=== PATIENT | male | born 1960 | race African-American/Black ===

== ENCOUNTER 2021-10-25 18:20 | Inpatient (IN) | payer OTHER, MEDICAID ==
[~2021-10-25] VITALS: Ht 170.2 cm; Wt 57.2 kg
[~2021-10-25 18:20] MED LIST: BACL5TAB PO; ELVI1TAB3 MT; MSCON15 MT; TAMS-11 MT
[2021-10-25 19:36] LABS: BASOPHILS % 0.9 % (0.0-2.0); EOSINOPHILS % 3.1 % (0.0-5.0); HEMATOCRIT. 37.2 % (42.0-52.0); HEMOGLOBIN. 12.5 g/dL (14.0-18.0); LYMPHOCYTES % 59.3 % (20.0-50.0); MEAN CORPUSCULAR HEMOGLOBIN 28.1 pg (28.0-32.0); MEAN CORPUSCULAR VOLUME 83.8 fL (80.0-94.0); MEAN PLATELET VOLUME 7.8 fl (7.4-10.4); NEUTROPHILS % 26.7 % (40.0-76.0); PLATELET 251 x1000/uL (130-400); RED BLOOD CELL COUNT 4.44 mill/uL (4.7-6.1); RED CELL DISTRIBUTION WIDTH 13.5 % (11.6-14.6)
[2021-10-25 19:42] LABS: CHLORIDE 105 mEq/L (98-107)
[2021-10-25 19:45] LABS: ETHANOL BLOOD < 10 mg/dL
[2021-10-25 19:51] LABS: CREATINE KINASE 181 IU/L (39-308)
[2021-10-25 19:53] LABS: CREATINE KINASE MB FRACTION 2.5 ng/mL (0.5-3.6)
[2021-10-25] MEDS ORDERED: SODIUM CHLORIDE 0.9% 1,000 ML IV ONE (20:45)
[2021-10-25 21:00] LABS: PROTHROMBIN TIME 10.7 sec (9.6-11.0)
[2021-10-25] MEDS ORDERED: ACETAMINOPHEN 325MG TABLET PO PRN (21:45)
[2021-10-25] MEDS ORDERED: CLONIDINE 0.1MG TABLET PO PRN (21:45)
[2021-10-25] MEDS ORDERED: DOCUSATE SODIUM 100MG CAPSULE PO PRN (21:45)
[2021-10-25] MEDS ORDERED: ONDANSETRON HCL 4MG/2ML INJ IV PRN (21:45)
[2021-10-25] MEDS ORDERED: IPRATROPIUM/ALBUTEROL 0.5-3(2.5)MG/3ML NEB HHN PRN (21:45)
[2021-10-25] MEDS ORDERED: GUAIFENESIN 200MG/10ML SUGAR FREE UDC PO PRN (21:45)
[2021-10-25] MEDS ORDERED: NALOXONE HCL 0.4MG/ML VIAL IV PRN (22:00)
[2021-10-25 23:42] LABS: CLARITY URINE CLEAR (CLEAR); COLOR URINE YELLOW (YELLOW); KETONES URINE NEGATIVE (NEGATIVE); LEUKOCYTE ESTERASE URINE 3+ (NEGATIVE); NITRITE URINE POSITIVE (NEGATIVE); OCCULT BLOOD URINE 2+ (NEGATIVE); PH URINE 6.5 (4.5-8.0); PROTEIN URINE NEGATIVE (NEGATIVE); SPECIFIC GRAVITY URINE 1.014 (1.005-1.030)
[2021-10-26 00:46] LABS: *AMPHETAMINES SCREEN URINE NEGATIVE (NEGATIVE); *BENZODIAZEPINES SCREEN URINE NEGATIVE (NEGATIVE); *COCAINE SCREEN URINE NEGATIVE (NEGATIVE); CANNABINOID URINE SCREEN NEGATIVE (NEGATIVE); METHADONE URINE SCREEN NEGATIVE (NEGATIVE); OPIATES URINE SCREEN NEGATIVE (NEGATIVE); PHENCYCLIDINE URINE SCREEN NEGATIVE (NEGATIVE)
[2021-10-26 02:20] LABS: *BARBITURATES SCREEN URINE NEGATIVE (NEGATIVE)
[2021-10-26] MEDS ORDERED: CEFTRIAXONE 1 G PREMIX 50 ML IV SCH (09:00)
[2021-10-26] MEDS: ENOXAPARIN 30MG/0.3ML SYR SUBCUT SCH (09:39)
[2021-10-26] MEDS ORDERED: HYDROCODONE/ACETAMINOPHEN 5/325MG TABLET PO PRN (11:45)
[2021-10-26] MEDS ORDERED: BISACODYL 5MG TABLET PO PRN (11:45)
[2021-10-26] MEDS: POLYETHYLENE GLYCOL 3350 (17GM) 1 DOSE PACK PO SCH (12:00)
[2021-10-26] MEDS: GABAPENTIN 300MG CAPSULE PO SCH (12:17)
[2021-10-26 16:03] LABS: BASOPHILS % 1.1 % (0.0-2.0); EOSINOPHILS % 3.3 % (0.0-5.0); HEMATOCRIT. 37.6 % (42.0-52.0); HEMOGLOBIN. 12.3 g/dL (14.0-18.0); LYMPHOCYTES % 54.5 % (20.0-50.0); MEAN CORPUSCULAR HEMOGLOBIN 27.3 pg (28.0-32.0); MEAN CORPUSCULAR VOLUME 83.6 fL (80.0-94.0); MEAN PLATELET VOLUME 7.9 fl (7.4-10.4); MONOCYTES % 7.1 % (2.0-8.0); PLATELET 258 x1000/uL (130-400); RED BLOOD CELL COUNT 4.49 mill/uL (4.7-6.1); RED CELL DISTRIBUTION WIDTH 13.9 % (11.6-14.6)
[2021-10-26 16:08] LABS: CHLORIDE 108 mEq/L (98-107)
[2021-10-26 17:30] VITALS: BP 106/72
[2021-10-26] MEDS ORDERED: PNEUMOCOCCAL 23-VAL P-SAC VAC 0.5 ML IM ONE (18:30)
[2021-10-26 20:00] VITALS: BP 120/78
[2021-10-26] MEDS ORDERED: LACTULOSE 20G/30ML UDC PO PRN (21:00)
[2021-10-27] VITALS: BP 118/74
[2021-10-27 04:00] VITALS: BP 113/74
[2021-10-27 05:56] LABS: BASOPHILS % 0.7 % (0.0-2.0); EOSINOPHILS % 4.8 % (0.0-5.0); HEMOGLOBIN. 12.5 g/dL (14.0-18.0); LYMPHOCYTES % 57.7 % (20.0-50.0); MEAN CORPUSCULAR HEMOGLOBIN 27.6 pg (28.0-32.0); MEAN CORPUSCULAR VOLUME 83.7 fL (80.0-94.0); MONOCYTES % 7.5 % (2.0-8.0); NEUTROPHILS % 29.3 % (40.0-76.0); PLATELET 261 x1000/uL (130-400); RED BLOOD CELL COUNT 4.54 mill/uL (4.7-6.1); RED CELL DISTRIBUTION WIDTH 13.8 % (11.6-14.6)
[2021-10-27 06:40] LABS: CHLORIDE 109 mEq/L (98-107)
[2021-10-27 08:00] VITALS: BP 106/62
[2021-10-27] MEDS: POLYETHYLENE GLYCOL 3350 (17GM) 1 DOSE PACK PO SCH (09:00)
[2021-10-27] MEDS: ENOXAPARIN 30MG/0.3ML SYR SUBCUT SCH (09:17)
[2021-10-27] MEDS: GENVOYA PO SCH (09:17)
[2021-10-27] MEDS: GABAPENTIN 300MG CAPSULE PO SCH (09:18)
[2021-10-27] MEDS ORDERED: CEFTRIAXONE 1,000 MG in DEXTROSE 5% WATER 50 ML IV SCH (11:00)
[2021-10-27 12:00] VITALS: BP 100/61
[2021-10-27] MEDS: DOCUSATE SODIUM 250MG CAPSULE PO SCH (13:10)
[2021-10-27 16:00] VITALS: BP 99/68
[2021-10-27 20:00] VITALS: BP 112/70
[2021-10-27] MEDS: PIPERACILLIN/TAZOBACTAM 3.375 G in DEXTROSE 5% WATER 50 ML IV SCH (23:44)
[2021-10-28] VITALS: BP 99/51
[2021-10-28 04:00] VITALS: BP 90/62
[2021-10-28] MEDS: PIPERACILLIN/TAZOBACTAM 3.375 G in DEXTROSE 5% WATER 50 ML IV SCH ×2 (05:34→15:42)
[2021-10-28 08:00] VITALS: BP 107/69
[2021-10-28] MEDS: POLYETHYLENE GLYCOL 3350 (17GM) 1 DOSE PACK PO SCH (09:00)
[2021-10-28] MEDS: ENOXAPARIN 30MG/0.3ML SYR SUBCUT SCH (09:09)
[2021-10-28] MEDS: DOCUSATE SODIUM 250MG CAPSULE PO SCH (09:10)
[2021-10-28] MEDS: GABAPENTIN 300MG CAPSULE PO SCH (09:10)
[2021-10-28] MEDS: GENVOYA PO SCH (09:11)
[2021-10-28 12:00] VITALS: BP 101/73
[2021-10-28] MEDS: LACTULOSE 20G/30ML UDC PO NR ×2 (14:00→15:42)
[2021-10-28 16:00] VITALS: BP 112/77
[2021-10-28] MEDS ORDERED: LEVO750T46 MT ×2 (17:50)
[2021-10-28] MEDS ORDERED: DOCU250C14 MT (17:56)
[2021-10-28 20:00] VITALS: BP 118/82
[2021-10-28] MEDS: LEVOFLOXACIN 500MG TABLET PO SCH (20:30)
[2021-10-29] VITALS: BP 105/54
[2021-10-29 04:00] VITALS: BP 95/55
[2021-10-29 08:00] VITALS: BP 110/65
[2021-10-29] MEDS: POLYETHYLENE GLYCOL 3350 (17GM) 1 DOSE PACK PO SCH (09:00)
[2021-10-29] MEDS: DOCUSATE SODIUM 250MG CAPSULE PO SCH (09:08)
[2021-10-29] MEDS: GENVOYA PO SCH (09:08)
[2021-10-29] MEDS: GABAPENTIN 300MG CAPSULE PO SCH (09:08)
[2021-10-29] MEDS: ENOXAPARIN 40MG/0.4ML SYR SUBCUT SCH (09:09)
[2021-10-29 12:00] VITALS: BP 101/67
[2021-10-29] MEDS ORDERED: BISACODYL 5MG TABLET PO SCH (14:00)
[2021-10-29 16:00] VITALS: BP 123/81
[2021-10-29] MEDS: LEVOFLOXACIN 500MG TABLET PO SCH (17:43)
[2021-10-29 20:00] VITALS: BP 112/75
[2021-10-29] MEDS: TRAMADOL 50MG TABLET PO PRN (20:49)
[2021-10-30] VITALS: BP 116/59
[2021-10-30 04:00] VITALS: BP 126/66
[2021-10-30 08:00] VITALS: BP 105/60
[2021-10-30] MEDS: POLYETHYLENE GLYCOL 3350 (17GM) 1 DOSE PACK PO SCH (09:00)
[2021-10-30] MEDS: GABAPENTIN 300MG CAPSULE PO SCH (09:41)
[2021-10-30] MEDS: TRAMADOL 50MG TABLET PO PRN (09:41)
[2021-10-30] MEDS: GENVOYA PO SCH (09:41)
[2021-10-30] MEDS: DOCUSATE SODIUM 250MG CAPSULE PO SCH (09:47)
[2021-10-30] MEDS: ENOXAPARIN 40MG/0.4ML SYR SUBCUT SCH (09:49)
[2021-10-30 12:00] VITALS: BP 101/65
[2021-10-30 16:00] VITALS: BP 104/67
[2021-10-30] MEDS: LEVOFLOXACIN 500MG TABLET PO SCH (18:49)
[2021-10-30 20:00] VITALS: BP 109/66
[2021-10-31] VITALS: BP 92/48
[2021-10-31 04:00] VITALS: BP 103/58
[2021-10-31 08:00] VITALS: BP 96/58
[2021-10-31] MEDS: GENVOYA PO SCH (09:00)
[2021-10-31] MEDS: DOCUSATE SODIUM 250MG CAPSULE PO SCH (09:25)
[2021-10-31] MEDS: GABAPENTIN 300MG CAPSULE PO SCH (09:25)
[2021-10-31] MEDS: ENOXAPARIN 40MG/0.4ML SYR SUBCUT SCH (09:25)
[2021-10-31] MEDS: POLYETHYLENE GLYCOL 3350 (17GM) 1 DOSE PACK PO SCH (09:25)
[2021-10-31 12:00] VITALS: BP 117/72
[2021-10-31 16:00] VITALS: BP 110/70
[2021-10-31] MEDS: LEVOFLOXACIN 500MG TABLET PO SCH (17:35)
[2021-10-31 20:00] VITALS: BP 104/72
[2021-11-01] VITALS: BP 100/56
[2021-11-01 04:00] VITALS: BP 106/56
[2021-11-01 08:00] VITALS: BP 91/56
[2021-11-01] MEDS: POLYETHYLENE GLYCOL 3350 (17GM) 1 DOSE PACK PO SCH (08:50)
[2021-11-01] MEDS: GABAPENTIN 300MG CAPSULE PO SCH (08:50)
[2021-11-01] MEDS: DOCUSATE SODIUM 250MG CAPSULE PO SCH (08:51)
[2021-11-01] MEDS: ENOXAPARIN 40MG/0.4ML SYR SUBCUT SCH (08:51)
[2021-11-01] MEDS: GENVOYA PO SCH ×2 (08:53→16:55)
[2021-11-01 12:00] VITALS: BP 98/71
[2021-11-01 16:00] VITALS: BP 104/73
[2021-11-01] MEDS: LEVOFLOXACIN 500MG TABLET PO SCH (16:56)
[2021-11-01 20:00] VITALS: BP 106/80
[2021-11-02] VITALS: BP 103/70
[2021-11-02 04:00] VITALS: BP 117/75
[2021-11-02 06:37] LABS: BASOPHILS % 0.4 % (0.0-2.0); EOSINOPHILS % 3.9 % (0.0-5.0); HEMOGLOBIN. 12.9 g/dL (14.0-18.0); LYMPHOCYTES % 51.3 % (20.0-50.0); MEAN CORPUSCULAR VOLUME 82.7 fL (80.0-94.0); MEAN PLATELET VOLUME 8.2 fl (7.4-10.4); MONOCYTES % 7.8 % (2.0-8.0); NEUTROPHILS % 36.6 % (40.0-76.0); PLATELET 325 x1000/uL (130-400); RED BLOOD CELL COUNT 4.59 mill/uL (4.7-6.1); RED CELL DISTRIBUTION WIDTH 13.9 % (11.6-14.6)
[2021-11-02 06:40] LABS: CHLORIDE 105 mEq/L (98-107)
[2021-11-02 08:00] VITALS: BP 109/70
[2021-11-02] MEDS: POLYETHYLENE GLYCOL 3350 (17GM) 1 DOSE PACK PO SCH (09:09)
[2021-11-02] MEDS: ENOXAPARIN 40MG/0.4ML SYR SUBCUT SCH (09:09)
[2021-11-02] MEDS: GENVOYA PO SCH (09:09)
[2021-11-02] MEDS: GABAPENTIN 300MG CAPSULE PO SCH (09:09)
[2021-11-02] MEDS: DOCUSATE SODIUM 250MG CAPSULE PO SCH (09:09)
[2021-11-02 12:00] VITALS: BP 105/70
[2021-11-02 16:00] VITALS: BP 110/73
[2021-11-02] MEDS: LEVOFLOXACIN 500MG TABLET PO SCH (17:36)
[2021-11-02 20:00] VITALS: BP 99/52
[2021-11-03] VITALS: BP 106/55
[2021-11-03 04:00] VITALS: BP 99/56
[2021-11-03 08:00] VITALS: BP 94/59
[2021-11-03] MEDS: DOCUSATE SODIUM 250MG CAPSULE PO SCH (08:55)
[2021-11-03] MEDS: ENOXAPARIN 40MG/0.4ML SYR SUBCUT SCH (08:55)
[2021-11-03] MEDS: GABAPENTIN 300MG CAPSULE PO SCH (08:55)
[2021-11-03] MEDS: GENVOYA PO SCH (08:56)
[2021-11-03 12:00] VITALS: BP 108/70
[2021-11-03 16:00] VITALS: BP 112/72
[2021-11-03 20:00] VITALS: BP 98/71
[2021-11-04] VITALS: BP 101/73
[2021-11-04 04:00] VITALS: BP 96/52
[2021-11-04 08:00] VITALS: BP 95/54
[2021-11-04] MEDS: GABAPENTIN 300MG CAPSULE PO SCH (09:01)
[2021-11-04] MEDS: DOCUSATE SODIUM 250MG CAPSULE PO SCH (09:01)
[2021-11-04] MEDS: GENVOYA PO SCH (09:01)
[2021-11-04] MEDS: ENOXAPARIN 40MG/0.4ML SYR SUBCUT SCH (09:02)
[2021-11-04 11:35] VITALS: BP 100/61
[2021-11-04 16:00] VITALS: BP 102/74
[2021-11-04 20:00] VITALS: BP 115/77
[2021-11-05] VITALS: BP 98/89
[2021-11-05 04:00] VITALS: BP 91/47
[2021-11-05 08:00] VITALS: BP 98/58
[2021-11-05] MEDS: DOCUSATE SODIUM 250MG CAPSULE PO SCH (08:51)
[2021-11-05] MEDS: GENVOYA PO SCH (08:51)
[2021-11-05] MEDS: GABAPENTIN 300MG CAPSULE PO SCH (08:51)
[2021-11-05] MEDS: ENOXAPARIN 40MG/0.4ML SYR SUBCUT SCH (08:52)
[2021-11-05 12:00] VITALS: BP 91/58
[2021-11-05 16:00] VITALS: BP 114/55
[2021-11-05 20:00] VITALS: BP 107/69
[2021-11-05] MEDS: POLYETHYLENE GLYCOL 3350 (17GM) 1 DOSE PACK PO PRN (21:58)
[2021-11-06] VITALS: BP 117/70
[2021-11-06 04:00] VITALS: BP 101/53
[2021-11-06 08:00] VITALS: BP 100/64
[2021-11-06] MEDS: DOCUSATE SODIUM 250MG CAPSULE PO SCH (09:02)
[2021-11-06] MEDS: ENOXAPARIN 40MG/0.4ML SYR SUBCUT SCH (09:02)
[2021-11-06] MEDS: GABAPENTIN 300MG CAPSULE PO SCH (09:02)
[2021-11-06] MEDS: GENVOYA PO SCH (09:03)
[2021-11-06] MEDS: POLYETHYLENE GLYCOL 3350 (17GM) 1 DOSE PACK PO PRN (09:09)
[2021-11-06 12:00] VITALS: BP 110/85
[2021-11-06 16:00] VITALS: BP 107/72
[2021-11-06 20:00] VITALS: BP 116/79
[2021-11-07 08:00] VITALS: BP 92/59
[2021-11-07] MEDS: GENVOYA PO SCH (08:28)
[2021-11-07] MEDS: GABAPENTIN 300MG CAPSULE PO SCH (08:28)
[2021-11-07] MEDS: POLYETHYLENE GLYCOL 3350 (17GM) 1 DOSE PACK PO PRN (08:29)
[2021-11-07] MEDS: ENOXAPARIN 40MG/0.4ML SYR SUBCUT SCH (08:29)
[2021-11-07] MEDS: DOCUSATE SODIUM 250MG CAPSULE PO SCH (08:29)
[2021-11-07 12:00] VITALS: BP 98/74
[2021-11-07 16:00] VITALS: BP 105/70
[2021-11-07] MEDS ORDERED: POLYETHYLENE GLYCOL 3350 (17GM) 1 DOSE PACK PO NR (18:30)
[2021-11-07 20:00] VITALS: BP 112/80
[2021-11-07] MEDS: BACLOFEN 10MG TABLET PO SCH (21:44)
[2021-11-08] VITALS: BP 108/70
[2021-11-08 04:00] VITALS: BP 117/68
[2021-11-08 08:01] VITALS: BP 106/57
[2021-11-08] MEDS: GABAPENTIN 300MG CAPSULE PO SCH (08:43)
[2021-11-08] MEDS: DOCUSATE SODIUM 250MG CAPSULE PO SCH (08:43)
[2021-11-08] MEDS: ENOXAPARIN 40MG/0.4ML SYR SUBCUT SCH (08:43)
[2021-11-08] MEDS: GENVOYA PO SCH (08:44)
[2021-11-08] MEDS: BACLOFEN 10MG TABLET PO SCH ×2 (08:44→23:30)
[2021-11-08 11:31] VITALS: BP 105/70
[2021-11-08] MEDS: POLYETHYLENE GLYCOL 3350 (17GM) 1 DOSE PACK PO PRN (12:47)
[2021-11-08 15:28] VITALS: BP 112/76
[2021-11-08 20:00] VITALS: BP 93/65
[2021-11-09] VITALS: BP 109/81
[2021-11-09 05:39] LABS: BASOPHILS % 0.6 % (0.0-2.0); EOSINOPHILS % 3.7 % (0.0-5.0); HEMATOCRIT. 40.6 % (42.0-52.0); HEMOGLOBIN. 13.5 g/dL (14.0-18.0); LYMPHOCYTES % 56.1 % (20.0-50.0); MEAN CORPUSCULAR HEMOGLOBIN 27.6 pg (28.0-32.0); MEAN PLATELET VOLUME 8.3 fl (7.4-10.4); MONOCYTES % 6.7 % (2.0-8.0); NEUTROPHILS % 32.9 % (40.0-76.0); PLATELET 314 x1000/uL (130-400); RED BLOOD CELL COUNT 4.89 mill/uL (4.7-6.1); RED CELL DISTRIBUTION WIDTH 14.2 % (11.6-14.6)
[2021-11-09 05:43] LABS: CHLORIDE 105 mEq/L (98-107)
[2021-11-09 08:00] VITALS: BP 99/71
[2021-11-09] MEDS: DOCUSATE SODIUM 250MG CAPSULE PO SCH (09:00)
[2021-11-09] MEDS: GENVOYA PO SCH (10:04)
[2021-11-09] MEDS: GABAPENTIN 300MG CAPSULE PO SCH (10:04)
[2021-11-09] MEDS: ENOXAPARIN 40MG/0.4ML SYR SUBCUT SCH (10:04)
[2021-11-09] MEDS: BACLOFEN 10MG TABLET PO SCH ×2 (10:05→21:39)
[2021-11-09 12:00] VITALS: BP 101/73
[2021-11-09 16:00] VITALS: BP 108/75
[2021-11-09 20:00] VITALS: BP 104/66
[2021-11-10] VITALS: BP 111/66
[2021-11-10 04:00] VITALS: BP 100/60
[2021-11-10 08:00] VITALS: BP 100/69
[2021-11-10] MEDS: GENVOYA PO SCH (09:31)
[2021-11-10] MEDS: GABAPENTIN 300MG CAPSULE PO SCH (09:36)
[2021-11-10] MEDS: BACLOFEN 10MG TABLET PO SCH ×2 (09:36→20:51)
[2021-11-10] MEDS: DOCUSATE SODIUM 250MG CAPSULE PO SCH (09:36)
[2021-11-10] MEDS: ENOXAPARIN 40MG/0.4ML SYR SUBCUT SCH (09:36)
[2021-11-10] MEDS: POLYETHYLENE GLYCOL 3350 (17GM) 1 DOSE PACK PO PRN (09:43)
[2021-11-10 12:00] VITALS: BP 123/76
[2021-11-10 16:17] VITALS: BP 112/69
[2021-11-10 20:00] VITALS: BP 98/74
[2021-11-11] VITALS: BP 119/72
[2021-11-11 04:00] VITALS: BP 96/71
[2021-11-11 08:05] VITALS: BP 105/72
[2021-11-11] MEDS: ENOXAPARIN 40MG/0.4ML SYR SUBCUT SCH (08:23)
[2021-11-11] MEDS: BACLOFEN 10MG TABLET PO SCH ×2 (08:23→20:39)
[2021-11-11] MEDS: GABAPENTIN 300MG CAPSULE PO SCH (08:23)
[2021-11-11] MEDS: DOCUSATE SODIUM 250MG CAPSULE PO SCH (08:23)
[2021-11-11] MEDS: GENVOYA PO SCH (08:24)
[2021-11-11 12:00] VITALS: BP 110/70
[2021-11-11 15:35] VITALS: BP 100/73
[2021-11-11 20:00] VITALS: BP 104/66
[2021-11-12] VITALS: BP 116/74
[2021-11-12 04:00] VITALS: BP 104/68
[2021-11-12 07:40] VITALS: BP 116/62
[2021-11-12] MEDS: GABAPENTIN 300MG CAPSULE PO SCH (07:59)
[2021-11-12] MEDS: BACLOFEN 10MG TABLET PO SCH ×2 (07:59→21:37)
[2021-11-12] MEDS: GENVOYA PO SCH (08:01)
[2021-11-12] MEDS: DOCUSATE SODIUM 250MG CAPSULE PO SCH (08:01)
[2021-11-12] MEDS: ENOXAPARIN 40MG/0.4ML SYR SUBCUT SCH (08:03)
[2021-11-12 12:11] VITALS: BP 107/68
[2021-11-12 15:17] VITALS: BP 120/77
[2021-11-12] MEDS: POLYETHYLENE GLYCOL 3350 (17GM) 1 DOSE PACK PO PRN (16:14)
[2021-11-12 20:21] VITALS: BP 102/64
[2021-11-13] VITALS: BP 113/68
[2021-11-13 04:00] VITALS: BP 108/66
[2021-11-13 07:50] VITALS: BP 98/65
[2021-11-13] MEDS: GENVOYA PO SCH (08:06)
[2021-11-13] MEDS: GABAPENTIN 300MG CAPSULE PO SCH (08:07)
[2021-11-13] MEDS: DOCUSATE SODIUM 250MG CAPSULE PO SCH (08:07)
[2021-11-13] MEDS: BACLOFEN 10MG TABLET PO SCH ×2 (08:07→20:25)
[2021-11-13] MEDS: ENOXAPARIN 40MG/0.4ML SYR SUBCUT SCH (08:07)
[2021-11-13 11:33] VITALS: BP 97/58
[2021-11-13] MEDS: TAMSULOSIN HCL 0.4MG SR CAPSULE PO SCH (11:58)
[2021-11-13 15:44] VITALS: BP 123/75
[2021-11-13 20:00] VITALS: BP 111/82
[2021-11-14] VITALS: BP 100/69
[2021-11-14 04:00] VITALS: BP 110/66
[2021-11-14 07:55] VITALS: BP 109/71
[2021-11-14] MEDS: BACLOFEN 10MG TABLET PO SCH ×2 (08:24→20:21)
[2021-11-14] MEDS: GENVOYA PO SCH (08:24)
[2021-11-14] MEDS: TAMSULOSIN HCL 0.4MG SR CAPSULE PO SCH (08:24)
[2021-11-14] MEDS: GABAPENTIN 300MG CAPSULE PO SCH (08:24)
[2021-11-14] MEDS: ENOXAPARIN 40MG/0.4ML SYR SUBCUT SCH (08:25)
[2021-11-14] MEDS: DOCUSATE SODIUM 250MG CAPSULE PO SCH (08:25)
[2021-11-14 16:05] VITALS: BP 119/80
[2021-11-14 20:00] VITALS: BP 116/78
[2021-11-15] VITALS: BP 108/70
[2021-11-15 04:00] VITALS: BP 109/76
[2021-11-15 06:49] LABS: HEMATOCRIT 38.2 % (42.0-52.0); HEMOGLOBIN 12.5 g/dL (14.0-18.0); MEAN CORPUSCULAR HEMOGLOBIN 27.5 pg (28.0-32.0); PLATELET 233 x1000/uL (130-400); RED BLOOD CELL COUNT 4.54 mill/uL (4.7-6.1); RED CELL DISTRIBUTION WIDTH 14.7 % (11.6-14.6)
[2021-11-15 07:09] LABS: CHLORIDE 105 mEq/L (98-107)
[2021-11-15 07:56] VITALS: BP 97/64
[2021-11-15] MEDS: ENOXAPARIN 40MG/0.4ML SYR SUBCUT SCH (08:25)
[2021-11-15] MEDS: TAMSULOSIN HCL 0.4MG SR CAPSULE PO SCH (08:25)
[2021-11-15] MEDS: GABAPENTIN 300MG CAPSULE PO SCH (08:25)
[2021-11-15] MEDS: BACLOFEN 10MG TABLET PO SCH ×2 (08:26→20:39)
[2021-11-15] MEDS: GENVOYA PO SCH (08:26)
[2021-11-15] MEDS: DOCUSATE SODIUM 250MG CAPSULE PO SCH (08:26)
[2021-11-15 11:35] VITALS: BP 111/74
[2021-11-15 16:20] VITALS: BP 105/65
[2021-11-15 20:00] VITALS: BP 115/82
[2021-11-16] VITALS: BP 110/76
[2021-11-16 04:00] VITALS: BP 100/52
[2021-11-16 07:49] VITALS: BP 95/57
[2021-11-16 07:55] VITALS: BP 95/67
[2021-11-16] MEDS: DOCUSATE SODIUM 250MG CAPSULE PO SCH (08:26)
[2021-11-16] MEDS: GABAPENTIN 300MG CAPSULE PO SCH (08:26)
[2021-11-16] MEDS: TAMSULOSIN HCL 0.4MG SR CAPSULE PO SCH (08:26)
[2021-11-16] MEDS: GENVOYA PO SCH (08:26)
[2021-11-16] MEDS: BACLOFEN 10MG TABLET PO SCH (08:27)
[2021-11-16] MEDS: ENOXAPARIN 40MG/0.4ML SYR SUBCUT SCH (08:27)
== END 2021-11-16 09:46 | disposition home or self-care (01) | DRG 690 ==
LOC: ER 18:20 → EDBEDREQ 21:37 → EDBEDREQTM 21:37 → 8WST 10-26 17:59
PROVIDERS: ADMIT Internal Medicine; ATTEND Internal Medicine
DX: N39.0 Urinary tract infection, site not specified (principal); G82.20 Paraplegia, unspecified; K59.00 Constipation, unspecified; R06.00 Dyspnea, unspecified; R06.02 Shortness of breath; Z20.822 Contact with and (suspected) exposure to COVID-19; Z82.49 Family history of ischemic heart disease and other diseases of the circulatory system
CPT/HCPCS: 36415; 71045; 80048; 80053; 80305; 80320; 81003; 82550; 82553; 82962; 83880; 84484; 85025; 85027; 87077; 87186; 87426; 90732; 93005; 93970; 97116; 97162; 97530; 99285; A6261; J0696; J1650; J2543; J7030; J7040; J7060; A4315; G0480

== ENCOUNTER 2022-03-26 22:12 | Inpatient (IN) | payer OTHER, MEDICAID ==
[~2022-03-26] VITALS: Ht 170.2 cm; Wt 68.2 kg
[~2022-03-26 22:12] MED LIST changes: -BACL5TAB PO; +DOCU250C14 MT; -MSCON15 MT
[2022-03-26] MEDS ORDERED: METOCLOPRAMIDE HCL 10MG/2ML VIAL IV STA (22:36)
[2022-03-26] MEDS ORDERED: SODIUM CHLORIDE 0.9% 1,000 ML IV ONE (22:45)
[2022-03-26 23:06] LABS: BASOPHILS % 0.6 % (0.0-2.0); EOSINOPHILS % 2.9 % (0.0-5.0); HEMATOCRIT. 38.2 % (42.0-52.0); HEMOGLOBIN. 12.6 g/dL (14.0-18.0); MEAN CORPUSCULAR HEMOGLOBIN 27.9 pg (28.0-32.0); MEAN CORPUSCULAR VOLUME 84.8 fL (80.0-94.0); MEAN PLATELET VOLUME 8.3 fl (7.4-10.4); MONOCYTES % 7.8 % (2.0-8.0); NEUTROPHILS % 45.7 % (40.0-76.0); PLATELET 200 x1000/uL (130-400); RED CELL DISTRIBUTION WIDTH 14.6 % (11.6-14.6)
[2022-03-26 23:15] LABS: CHLORIDE 106 mEq/L (98-107)
[2022-03-26 23:26] LABS: ETHANOL BLOOD < 10 mg/dL
[2022-03-27] MEDS ORDERED: METOCLOPRAMIDE HCL 10MG/2ML VIAL IV NR (01:35)
[2022-03-27] MEDS ORDERED: CLONIDINE 0.1MG TABLET PO PRN (07:00)
[2022-03-27] MEDS ORDERED: MAGNESIUM/ALUMINUM HYDROXIDE/SIMETHICONE 30ML UDC PO PRN (07:00)
[2022-03-27] MEDS ORDERED: HYDROCODONE/ACETAMINOPHEN 5/325MG TABLET PO PRN (07:00)
[2022-03-27] MEDS ORDERED: IPRATROPIUM/ALBUTEROL 0.5-3(2.5)MG/3ML NEB NEB PRN (07:00)
[2022-03-27] MEDS ORDERED: GUAIFENESIN 200MG/10ML SUGAR FREE UDC PO PRN (07:00)
[2022-03-27] MEDS ORDERED: ONDANSETRON HCL 4MG/2ML INJ IV PRN (07:00)
[2022-03-27] MEDS ORDERED: ACETAMINOPHEN 325MG TABLET PO PRN (07:00)
[2022-03-27] MEDS ORDERED: NALOXONE HCL 0.4MG/ML VIAL IV PRN (07:30)
[2022-03-27] MEDS ORDERED: *PATIENT'S OWN MEDICATION STORAGE XX SCH (10:30)
[2022-03-27] MEDS ORDERED: NA PHOS,M-B/NA PHOS,DI-BA ENEMA 118ML PR SCH (12:00)
[2022-03-27] MEDS ORDERED: GENVOYA 150/150/200/10MG TABLET XX SCH (13:00)
[2022-03-27] MEDS: ENOXAPARIN 40MG/0.4ML SYR SUBCUT SCH (13:08)
[2022-03-27 14:50] VITALS: BP 93/57
[2022-03-27 16:00] VITALS: BP 126/62
[2022-03-27 20:00] VITALS: BP 136/83
[2022-03-27] MEDS ORDERED: BISACODYL 5MG TABLET PO NR (22:00)
[2022-03-28] VITALS: BP 128/80
[2022-03-28 04:00] VITALS: BP 103/67
[2022-03-28] MEDS ORDERED: NA PHOS,M-B/NA PHOS,DI-BA ENEMA 118ML PR NR ×2 (06:00→23:45)
[2022-03-28 06:43] LABS: BASOPHILS % 0.8 % (0.0-2.0); EOSINOPHILS % 5.1 % (0.0-5.0); HEMATOCRIT. 40.2 % (42.0-52.0); HEMOGLOBIN. 13.3 g/dL (14.0-18.0); LYMPHOCYTES % 53.7 % (20.0-50.0); MEAN CORPUSCULAR HEMOGLOBIN 28.3 pg (28.0-32.0); MEAN CORPUSCULAR VOLUME 85.3 fL (80.0-94.0); MEAN PLATELET VOLUME 8.5 fl (7.4-10.4); MONOCYTES % 8.1 % (2.0-8.0); NEUTROPHILS % 32.3 % (40.0-76.0); PLATELET 188 x1000/uL (130-400); RED BLOOD CELL COUNT 4.71 mill/uL (4.7-6.1); RED CELL DISTRIBUTION WIDTH 14.7 % (11.6-14.6)
[2022-03-28 07:18] LABS: CHLORIDE 108 mEq/L (98-107)
[2022-03-28 08:00] VITALS: BP 110/71
[2022-03-28] MEDS: GENVOYA 150/150/200/10MG TABLET PO SCH (08:20)
[2022-03-28] MEDS: ENOXAPARIN 40MG/0.4ML SYR SUBCUT SCH (08:27)
[2022-03-28] MEDS ORDERED: BACL-141 MT (10:52)
[2022-03-28] MEDS ORDERED: HYDR-4009 MT (10:53)
[2022-03-28] MEDS ORDERED: *PATIENT'S OWN MEDICATION STORAGE XX SCH (11:15)
[2022-03-28 12:00] VITALS: BP 121/80
[2022-03-28 16:00] VITALS: BP 107/72
[2022-03-28 20:00] VITALS: BP 111/83
[2022-03-28] MEDS ORDERED: HYDROXYZINE 25MG TABLET PO PRN (23:45)
[2022-03-29] VITALS: BP 131/85
[2022-03-29 04:00] VITALS: BP 110/71
[2022-03-29 06:17] LABS: BASOPHILS % 0.7 % (0.0-2.0); EOSINOPHILS % 5.3 % (0.0-5.0); HEMATOCRIT. 41.9 % (42.0-52.0); HEMOGLOBIN. 13.9 g/dL (14.0-18.0); LYMPHOCYTES % 61.1 % (20.0-50.0); MEAN CORPUSCULAR HEMOGLOBIN 28.3 pg (28.0-32.0); MEAN CORPUSCULAR VOLUME 85.5 fL (80.0-94.0); MEAN PLATELET VOLUME 8.9 fl (7.4-10.4); NEUTROPHILS % 25.9 % (40.0-76.0); PLATELET 202 x1000/uL (130-400); RED CELL DISTRIBUTION WIDTH 14.5 % (11.6-14.6)
[2022-03-29 06:35] LABS: CHLORIDE 108 mEq/L (98-107)
[2022-03-29] MEDS: GENVOYA 150/150/200/10MG TABLET PO SCH (07:50)
[2022-03-29 08:00] VITALS: BP 98/71
[2022-03-29] MEDS: ENOXAPARIN 40MG/0.4ML SYR SUBCUT SCH (09:05)
[2022-03-29] MEDS: ACETAMINOPHEN 325MG TABLET PO PRN (09:06)
[2022-03-29 12:00] VITALS: BP 100/65
[2022-03-29] MEDS: MORPHINE SULFATE 2 MG/ML CPJ (NOT FOR IM USE) IV PRN (13:30)
[2022-03-29] MEDS ORDERED: SENN-293 PO (14:24)
[2022-03-29] MEDS ORDERED: POLY119P2 PO (14:24)
[2022-03-29] MEDS ORDERED: BISA10SU62 RC (14:24)
[2022-03-29] MEDS ORDERED: NA P230E RC (14:24)
[2022-03-29 16:00] VITALS: BP 111/75
[2022-03-29 20:06] VITALS: BP 102/68
[2022-03-30] VITALS: BP 102/60
[2022-03-30 04:00] VITALS: BP 100/53
[2022-03-30] MEDS: GENVOYA 150/150/200/10MG TABLET PO SCH (07:50)
[2022-03-30 07:53] LABS: BASOPHILS % 0.6 % (0.0-2.0); EOSINOPHILS % 4.9 % (0.0-5.0); HEMATOCRIT. 39.9 % (42.0-52.0); HEMOGLOBIN. 13.4 g/dL (14.0-18.0); LYMPHOCYTES % 61.9 % (20.0-50.0); MEAN CORPUSCULAR HEMOGLOBIN 28.4 pg (28.0-32.0); MEAN CORPUSCULAR VOLUME 84.5 fL (80.0-94.0); MEAN PLATELET VOLUME 8.7 fl (7.4-10.4); MONOCYTES % 8.8 % (2.0-8.0); NEUTROPHILS % 23.8 % (40.0-76.0); PLATELET 217 x1000/uL (130-400); RED BLOOD CELL COUNT 4.72 mill/uL (4.7-6.1); RED CELL DISTRIBUTION WIDTH 14.4 % (11.6-14.6)
[2022-03-30 08:00] VITALS: BP 107/69
[2022-03-30 08:03] LABS: CHLORIDE 107 mEq/L (98-107)
[2022-03-30] MEDS: MORPHINE SULFATE 2 MG/ML CPJ (NOT FOR IM USE) IV PRN (10:42)
[2022-03-30] MEDS: ENOXAPARIN 40MG/0.4ML SYR SUBCUT SCH (10:43)
[2022-03-30 12:00] VITALS: BP 119/77
[2022-03-30] MEDS ORDERED: NA PHOS,M-B/NA PHOS,DI-BA ENEMA 118ML PR NR (14:30)
[2022-03-30 16:00] VITALS: BP 107/63
[2022-03-30] MEDS ORDERED: MAGNESIUM HYDROXIDE 400MG/5ML 30ML UDC PO PRN (17:30)
[2022-03-30] MEDS ORDERED: BISACODYL 10MG SUPP PR PRN (17:30)
[2022-03-30] MEDS: POLYETHYLENE GLYCOL 3350 (17GM) 1 DOSE PACK PO SCH (17:30)
[2022-03-30] MEDS: SENNOSIDES/DOCUSATE SOD 8.6/50MG TABLET PO SCH (17:57)
[2022-03-30 20:00] VITALS: BP 113/70
[2022-03-31] VITALS: BP 92/56
[2022-03-31 04:00] VITALS: BP 91/59
[2022-03-31 07:50] LABS: BASOPHILS % 0.7 % (0.0-2.0); EOSINOPHILS % 6.1 % (0.0-5.0); HEMATOCRIT. 42.2 % (42.0-52.0); HEMOGLOBIN. 13.9 g/dL (14.0-18.0); LYMPHOCYTES % 61.1 % (20.0-50.0); MEAN CORPUSCULAR HEMOGLOBIN 27.9 pg (28.0-32.0); MEAN PLATELET VOLUME 8.9 fl (7.4-10.4); MONOCYTES % 7.5 % (2.0-8.0); NEUTROPHILS % 24.6 % (40.0-76.0); PLATELET 207 x1000/uL (130-400); RED BLOOD CELL COUNT 4.97 mill/uL (4.7-6.1); RED CELL DISTRIBUTION WIDTH 14.5 % (11.6-14.6)
[2022-03-31 08:00] VITALS: BP 122/78
[2022-03-31 08:41] LABS: CHLORIDE 106 mEq/L (98-107)
[2022-03-31] MEDS: POLYETHYLENE GLYCOL 3350 (17GM) 1 DOSE PACK PO SCH (09:00)
[2022-03-31] MEDS: GENVOYA 150/150/200/10MG TABLET PO SCH (09:56)
[2022-03-31] MEDS: ENOXAPARIN 40MG/0.4ML SYR SUBCUT SCH (09:58)
[2022-03-31] MEDS: SENNOSIDES/DOCUSATE SOD 8.6/50MG TABLET PO SCH ×2 (09:58→17:58)
[2022-03-31 12:00] VITALS: BP 118/74
[2022-03-31 16:00] VITALS: BP 104/60
[2022-03-31] MEDS: NA PHOS,M-B/NA PHOS,DI-BA ENEMA 118ML PR PRN (17:59)
[2022-03-31 20:00] VITALS: BP 109/68
[2022-03-31] MEDS: MORPHINE SULFATE 2 MG/ML CPJ (NOT FOR IM USE) IV PRN (20:17)
[2022-04-01] VITALS: BP 118/63
[2022-04-01 04:00] VITALS: BP 97/52
[2022-04-01 07:07] LABS: BASOPHILS % 0.6 % (0.0-2.0); EOSINOPHILS % 7.1 % (0.0-5.0); HEMATOCRIT. 39.2 % (42.0-52.0); LYMPHOCYTES % 57.5 % (20.0-50.0); MEAN CORPUSCULAR HEMOGLOBIN 28.1 pg (28.0-32.0); MEAN CORPUSCULAR VOLUME 84.8 fL (80.0-94.0); MEAN PLATELET VOLUME 8.6 fl (7.4-10.4); MONOCYTES % 8.5 % (2.0-8.0); NEUTROPHILS % 26.3 % (40.0-76.0); PLATELET 211 x1000/uL (130-400); RED BLOOD CELL COUNT 4.62 mill/uL (4.7-6.1); RED CELL DISTRIBUTION WIDTH 14.8 % (11.6-14.6)
[2022-04-01 08:00] VITALS: BP 99/62
[2022-04-01 08:11] LABS: CHLORIDE 107 mEq/L (98-107)
[2022-04-01] MEDS: SENNOSIDES/DOCUSATE SOD 8.6/50MG TABLET PO SCH ×2 (09:23→16:42)
[2022-04-01] MEDS: POLYETHYLENE GLYCOL 3350 (17GM) 1 DOSE PACK PO SCH (09:23)
[2022-04-01] MEDS: ENOXAPARIN 40MG/0.4ML SYR SUBCUT SCH (09:23)
[2022-04-01 12:00] VITALS: BP 125/65
[2022-04-01] MEDS: GENVOYA 150/150/200/10MG TABLET PO SCH (13:15)
[2022-04-01 16:00] VITALS: BP 101/68
[2022-04-01 20:00] VITALS: BP 111/76
[2022-04-02 00:12] VITALS: BP 109/72
[2022-04-02 04:00] VITALS: BP 143/83
[2022-04-02] MEDS: GENVOYA 150/150/200/10MG TABLET PO SCH (07:50)
[2022-04-02 08:00] VITALS: BP 105/66
[2022-04-02 09:02] LABS: BASOPHILS % 0.8 % (0.0-2.0); EOSINOPHILS % 5.6 % (0.0-5.0); HEMATOCRIT. 39.1 % (42.0-52.0); MEAN CORPUSCULAR HEMOGLOBIN 28.1 pg (28.0-32.0); MEAN CORPUSCULAR VOLUME 84.5 fL (80.0-94.0); MONOCYTES % 7.5 % (2.0-8.0); NEUTROPHILS % 31.1 % (40.0-76.0); PLATELET 224 x1000/uL (130-400); RED BLOOD CELL COUNT 4.63 mill/uL (4.7-6.1); RED CELL DISTRIBUTION WIDTH 14.7 % (11.6-14.6)
[2022-04-02 09:27] LABS: CHLORIDE 104 mEq/L (98-107)
[2022-04-02] MEDS: POLYETHYLENE GLYCOL 3350 (17GM) 1 DOSE PACK PO SCH (10:07)
[2022-04-02] MEDS: SENNOSIDES/DOCUSATE SOD 8.6/50MG TABLET PO SCH ×2 (10:07→17:29)
[2022-04-02] MEDS: ENOXAPARIN 40MG/0.4ML SYR SUBCUT SCH (10:18)
[2022-04-02 12:00] VITALS: BP 78/49
[2022-04-02 16:00] VITALS: BP 108/75
[2022-04-02] MEDS: ACETAMINOPHEN 325MG TABLET PO PRN (17:33)
[2022-04-02 20:00] VITALS: BP 96/53
[2022-04-03] VITALS: BP 108/76
[2022-04-03 04:00] VITALS: BP 105/70
[2022-04-03] MEDS: GENVOYA 150/150/200/10MG TABLET PO SCH (08:39)
[2022-04-03] MEDS: SENNOSIDES/DOCUSATE SOD 8.6/50MG TABLET PO SCH ×2 (08:40→17:32)
[2022-04-03] MEDS: POLYETHYLENE GLYCOL 3350 (17GM) 1 DOSE PACK PO SCH (08:40)
[2022-04-03] MEDS: ENOXAPARIN 40MG/0.4ML SYR SUBCUT SCH (08:40)
[2022-04-03] MEDS: NA PHOS,M-B/NA PHOS,DI-BA ENEMA 118ML PR PRN (11:38)
[2022-04-03 12:00] VITALS: BP 118/79
[2022-04-03 20:00] VITALS: BP 118/73
[2022-04-04] VITALS: BP 99/66
[2022-04-04 04:00] VITALS: BP 108/67
[2022-04-04 08:00] VITALS: BP 93/64
[2022-04-04] MEDS: SENNOSIDES/DOCUSATE SOD 8.6/50MG TABLET PO SCH (08:34)
[2022-04-04] MEDS: POLYETHYLENE GLYCOL 3350 (17GM) 1 DOSE PACK PO SCH (08:34)
[2022-04-04] MEDS: ENOXAPARIN 40MG/0.4ML SYR SUBCUT SCH (08:34)
[2022-04-04] MEDS: GENVOYA 150/150/200/10MG TABLET PO SCH (08:36)
[2022-04-04 20:00] VITALS: BP 120/81
[2022-04-05] VITALS: BP 122/83
[2022-04-05 04:00] VITALS: BP 128/80
[2022-04-05 08:00] VITALS: BP 96/57
[2022-04-05] MEDS: SENNOSIDES/DOCUSATE SOD 8.6/50MG TABLET PO SCH ×3 (08:39→18:24)
[2022-04-05] MEDS: ENOXAPARIN 40MG/0.4ML SYR SUBCUT SCH (08:39)
[2022-04-05] MEDS: GENVOYA 150/150/200/10MG TABLET PO SCH (08:39)
[2022-04-05] MEDS: POLYETHYLENE GLYCOL 3350 (17GM) 1 DOSE PACK PO SCH (08:42)
[2022-04-05 12:00] VITALS: BP 101/68
[2022-04-05 16:00] VITALS: BP 118/80
[2022-04-05 20:00] VITALS: BP 121/76
[2022-04-06] VITALS: BP 117/80
[2022-04-06 04:00] VITALS: BP 100/55
[2022-04-06 08:00] VITALS: BP 108/71
[2022-04-06 08:13] LABS: BASOPHILS % 0.7 % (0.0-2.0); EOSINOPHILS % 3.9 % (0.0-5.0); HEMATOCRIT. 39.5 % (42.0-52.0); HEMOGLOBIN. 13.1 g/dL (14.0-18.0); LYMPHOCYTES % 61.8 % (20.0-50.0); MEAN CORPUSCULAR HEMOGLOBIN 28.2 pg (28.0-32.0); MEAN CORPUSCULAR VOLUME 84.7 fL (80.0-94.0); MEAN PLATELET VOLUME 8.5 fl (7.4-10.4); MONOCYTES % 7.5 % (2.0-8.0); NEUTROPHILS % 26.1 % (40.0-76.0); PLATELET 246 x1000/uL (130-400); RED BLOOD CELL COUNT 4.66 mill/uL (4.7-6.1); RED CELL DISTRIBUTION WIDTH 14.8 % (11.6-14.6)
[2022-04-06 08:15] LABS: CHLORIDE 107 mEq/L (98-107)
[2022-04-06] MEDS: GENVOYA 150/150/200/10MG TABLET PO SCH (08:48)
[2022-04-06] MEDS: SENNOSIDES/DOCUSATE SOD 8.6/50MG TABLET PO SCH ×2 (08:50→16:47)
[2022-04-06] MEDS: ENOXAPARIN 40MG/0.4ML SYR SUBCUT SCH (08:50)
[2022-04-06] MEDS: POLYETHYLENE GLYCOL 3350 (17GM) 1 DOSE PACK PO SCH (09:00)
[2022-04-06 12:00] VITALS: BP 107/69
[2022-04-06 16:00] VITALS: BP 118/82
[2022-04-06 16:06] VITALS: BP 107/69
== END 2022-04-06 22:45 | DRG 389 ==
LOC: ER 22:12 → SUPCPDRO 03-27 06:52 → 6EST 03-27 07:01 → ENRESERV 03-27 07:24
PROVIDERS: ADMIT Internal Medicine; ATTEND Internal Medicine
DX: K56.41 Fecal impaction (principal); G82.20 Paraplegia, unspecified; K52.89 Other specified noninfective gastroenteritis and colitis; I10 Essential (primary) hypertension; D64.9 Anemia, unspecified; H54.62 Unqualified visual loss, left eye, normal vision right eye; Z79.899 Other long term (current) drug therapy; Z99.3 Dependence on wheelchair
CPT/HCPCS: 36415; 71045; 74018; 74176; 80048; 80053; 80320; 83605; 83880; 84484; 85025; 97110; 97162; 97166; 97530; 97535; 99285; J1650; J2270; J2765; J7030; G0480

== ENCOUNTER 2024-10-12 02:28 | Emergency (ER) | payer OTHER, MEDICAID ==
[~2024-10-12] VITALS: Ht 172.7 cm; Wt 73.0 kg
[~2024-10-12 02:28] MED LIST changes: +ASCO500T20 PO; +BISA10SU62 RC; -DOCU250C14 MT; +ENOX40DI8 SUBCUT; +FLUO-336 PO; +HYDR-4009 MT; +NA P230E RC; +POLY119P2 PO; +POLY17PO3 PO; +SENN-312 PO; +TIZA-191 PO; +TOPUD PO; +ZINC1CAP2 PO
[2024-10-12 02:35] VITALS: O2SAT 96
[2024-10-12 03:35] LABS: BASOPHILS % 0.7 % (0.0-2.0); EOSINOPHILS % 4.8 % (0.0-5.0); HEMATOCRIT. 36.9 % (42.0-52.0); LYMPHOCYTES % 62.7 % (20.0-50.0); MEAN CORPUSCULAR HEMOGLOBIN 27.2 pg (28.0-32.0); MEAN CORPUSCULAR HGB CONC 32.6 g/dL (31.0-37.0); MEAN CORPUSCULAR VOLUME 83.5 fL (80.0-94.0); MEAN PLATELET VOLUME 7.7 fl (7.4-10.4); MONOCYTES % 8.8 % (2.0-8.0); PLATELET 278 x1000/uL (130-400); RED BLOOD CELL COUNT 4.42 mill/uL (4.7-6.1); RED CELL DISTRIBUTION WIDTH 14.9 % (11.6-14.6); WHITE BLOOD COUNT 5.4 x1000/uL (4.5-11.0)
[2024-10-12 03:41] LABS: CHLORIDE 106 mEq/L (98-107); POTASSIUM 4.1 mEq/L (3.5-5.1); SODIUM 140 mEq/L (136-145)
[2024-10-12 03:42] LABS: CARBON DIOXIDE 28 mEq/L (21-32)
[2024-10-12 03:47] LABS: CREATININE 0.9 mg/dL (0.6-1.3); GLUCOSE 93 mg/dL (70-105); UREA NITROGEN BLOOD 17 mg/dL (9-23)
[2024-10-12] MEDS: ACETAMINOPHEN 325MG TABLET PO ONE (04:32)
[2024-10-12 08:18] VITALS: BP 113/78; PULSE 89; RESP 18; TEMP 36.3; O2SAT 98
== END 2024-10-12 08:22 | disposition home or self-care (01) ==
LOC: ER 02:28
DX: S09.8XXA Other specified injuries of head, initial encounter (principal); G82.20 Paraplegia, unspecified; H54.62 Unqualified visual loss, left eye, normal vision right eye; I10 Essential (primary) hypertension; Z79.899 Other long term (current) drug therapy; W22.03XA Walked into furniture, initial encounter; Y93.89 Activity, other specified; Y92.89 Other specified places as the place of occurrence of the external cause; Y99.8 Other external cause status
CPT/HCPCS: 36415; 80048; 85025; 99284